=== PATIENT | female | born 1975 | race Caucasian/White ===

== ENCOUNTER → 2024-08-05 10:02 | Outpatient (REF) | payer BC, SELFPAY | LOC: WDC 10:02 | PROVIDERS: ATTENDING PHYSICIAN Nurse Practitioner | DX: N63.23 Unspecified lump in the left breast, lower outer quadrant (principal) | CPT/HCPCS: 76642; 77062; 77066 ==

== ENCOUNTER → 2024-11-16 09:38 | Outpatient (REF) | payer BC, SELFPAY | LOC: WDC 09:38 | PROVIDERS: ATTENDING PHYSICIAN Nurse Practitioner | DX: N63.20 Unspecified lump in the left breast, unspecified quadrant (principal); N63.23 Unspecified lump in the left breast, lower outer quadrant | CPT/HCPCS: 76642; 77061; 77065 ==

== ENCOUNTER → 2024-11-22 09:22 | Outpatient (REF) | payer BC, SELFPAY ==
--- NOTE | 2024-11-22 14:38 | OID.BR.INTR ---
[facility] Breast Navigator - Initial
- -
Date of Contact: 11/22/24
Met with patient. Patient given written information on navigator service available at [facility]. Will follow up as needed per protocol.
== END ==
LOC: WDC 09:22
PROVIDERS: ATTENDING PHYSICIAN Nurse Practitioner
DX: N63.23 Unspecified lump in the left breast, lower outer quadrant (principal)
CPT/HCPCS: 88305; 19083; 88341; 88360; A4648

== ENCOUNTER → 2024-11-29 12:54 | Outpatient (REF) | payer BC, SELFPAY | LOC: WDC 12:54 | PROVIDERS: ATTENDING PHYSICIAN Surgery; FAMILY PHYSICIAN Nurse Practitioner | DX: R92.2 Inconclusive mammogram (principal) | CPT/HCPCS: 76641 ==

== ENCOUNTER 2025-08-01 06:47 | Outpatient (RCR) | payer BC, SELFPAY | END 2025-08-01 23:59 | disposition home or self-care (01) | LOC: RPT 06:47 | PROVIDERS: ATTENDING PHYSICIAN Radiology Radiation Oncology; FAMILY PHYSICIAN Nurse Practitioner | DX: I97.2 Postmastectomy lymphedema syndrome (principal); C50.812 Malignant neoplasm of overlapping sites of left female breast; R53.0 Neoplastic (malignant) related fatigue; Z17.0 Estrogen receptor positive status [ER+]; Z73.6 Limitation of activities due to disability | CPT/HCPCS: 97110; 97140; 97163; 97530 ==

== ENCOUNTER 2025-08-18 13:56 | Outpatient (RCR) | payer BC, SELFPAY | END 2025-08-18 23:59 | disposition home or self-care (01) | LOC: RPT 13:56 | PROVIDERS: ATTENDING PHYSICIAN Radiology Radiation Oncology; FAMILY PHYSICIAN Nurse Practitioner | DX: I97.2 Postmastectomy lymphedema syndrome (principal); C50.812 Malignant neoplasm of overlapping sites of left female breast; R53.0 Neoplastic (malignant) related fatigue; Z17.0 Estrogen receptor positive status [ER+]; Z73.6 Limitation of activities due to disability | CPT/HCPCS: 97530 ==